=== PATIENT | male | born 1995 | race Two or more races ===

== ENCOUNTER → 2018-01-26 | Outpatient (CLI) | payer OTHER | END | disposition home or self-care (01) | LOC: HKI 14:13 | DX: S80.02XA Contusion of left knee, initial encounter (principal); X58.XXXA Exposure to other specified factors, initial encounter; Y92.89 Other specified places as the place of occurrence of the external cause | CPT/HCPCS: 73564; 73564-LT ==

== ENCOUNTER → 2018-03-07 | Outpatient (CLI) | payer OTHER | END | disposition home or self-care (01) | LOC: HKI 15:03 | DX: S83.8X2A Sprain of other specified parts of left knee, initial encounter (principal) | CPT/HCPCS: Z7500 ==